=== PATIENT | female | born 1950 | race African-American/Black ===

== ENCOUNTER 2018-09-17 10:53 | Emergency (ER) | payer BC | END 2018-09-17 12:00 | disposition home or self-care (01) | LOC: NAV ERS 10:53 | DX: J20.8 Acute bronchitis due to other specified organisms (principal); I47.1 Supraventricular tachycardia; I49.9 Cardiac arrhythmia, unspecified; I10 Essential (primary) hypertension; E78.5 Hyperlipidemia, unspecified; Z79.899 Other long term (current) drug therapy | CPT/HCPCS: 87070; 87081; 87205; 87430; 94640; J7620 ==

== ENCOUNTER 2020-07-26 17:25 | Outpatient (CLI) | payer BC, MEDICARE | END 2020-07-26 17:26 | disposition home or self-care (01) | LOC: NAV RAD 17:25 | PROVIDERS: ATTEND Family Medicine | DX: M25.562 Pain in left knee (principal) ==

== ENCOUNTER 2020-08-08 16:22 | Emergency (ER) | payer BC, MEDICARE ==
[2020-08-08] MEDS ORDERED: Ketorolac Tromethamine 30 MG/ML VIAL ONE (16:58)
[2020-08-08] MEDS ORDERED: Dexamethasone 20 MG/5 ML VIAL ONE (16:58)
== END 2020-08-08 17:16 | disposition home or self-care (01) ==
LOC: NAV ERS 16:22
DX: M17.12 Unilateral primary osteoarthritis, left knee (principal); E78.5 Hyperlipidemia, unspecified; E78.00 Pure hypercholesterolemia, unspecified; I10 Essential (primary) hypertension; Z79.899 Other long term (current) drug therapy
CPT/HCPCS: 96372; 99283; J1100; J1885

== ENCOUNTER 2021-05-28 10:40 | Outpatient (CLI) | payer MEDICARE | END 2021-05-28 10:41 | disposition home or self-care (01) | LOC: NAV RAD 10:40 | PROVIDERS: ATTEND Family Medicine | DX: M25.511 Pain in right shoulder (principal) ==

== ENCOUNTER 2022-08-27 14:07 | Outpatient (CLI) | payer MEDICARE, OTHER | END 2022-08-27 14:08 | disposition home or self-care (01) | LOC: NAV RAD 14:07 | PROVIDERS: ATTEND Family Medicine | DX: J40 Bronchitis, not specified as acute or chronic (principal) | CPT/HCPCS: 71046 ==

== ENCOUNTER 2024-01-26 11:38 | Outpatient (CLI) | payer MEDICARE | END 2024-01-26 11:39 | disposition home or self-care (01) | LOC: NAV RAD 11:38 | PROVIDERS: ATTEND Student in an Organized Health Care Education/Training Program | DX: M25.512 Pain in left shoulder (principal); M19.012 Primary osteoarthritis, left shoulder ==

== ENCOUNTER 2024-06-15 12:37 | Outpatient (CLI) | payer MEDICARE | END 2024-06-15 12:38 | disposition home or self-care (01) | LOC: NAV RAD 12:37 | PROVIDERS: ATTEND Family Medicine | DX: M25.562 Pain in left knee (principal); M17.12 Unilateral primary osteoarthritis, left knee ==